=== PATIENT | female | born 1965 | race Hispanic/Latino ===

== ENCOUNTER 2019-02-07 18:11 | Emergency (ER) | payer BC ==
[~2019-02-07] VITALS: Ht 162.6 cm; Wt 82.3 kg
[2019-02-07] MEDS ORDERED: CEFTRIAXONE SOD 1 GM VIAL IM ONE (18:45)
[2019-02-07] MEDS ORDERED: CEFTRIAXONE SOD 1 GM VIAL ONE (18:48)
[2019-02-07 18:51] VITALS: BP 144/90
== END 2019-02-07 18:48 | disposition home or self-care (01) ==
LOC: FSED 18:11
DX: N30.01 Acute cystitis with hematuria (principal); R10.2 Pelvic and perineal pain
CPT/HCPCS: 81003; 96372; 99283; J0696

== ENCOUNTER 2024-04-15 09:30 | Inpatient (IN) | payer BC ==
[2024-04-15] VITALS (7 sets, daily range): BP systolic 150–151; BP diastolic 92–94; PULSE 84–95; RESP 16–19; TEMP 97.4–98.6; O2SAT 98–100
[~2024-04-15] VITALS: Ht 162.6 cm; Wt 71.7 kg
[2024-04-15] MEDS: DICYCLOMINE HCL 20 MG/2 ML VIAL IM ONE (09:52)
[2024-04-15] MEDS: LACTATED RINGER'S 1,000 ML INJ ONE (09:52)
[2024-04-15] MEDS: ONDANSETRON HCL INJ 2MG/ML 2ML 2 MG/ML VIAL IV STA (09:52)
[2024-04-15 10:10] LABS: BASOPHILS % 0.3 % (0.0-1.0); EOSINOPHILS % 0.2 % (0.0-6.0); HEMATOCRIT 44.9 % (34.2-44.1); HEMOGLOBIN 15.2 g/dL (12.0-16.0); LYMPHOCYTES # (AUTO) 1.4 (1.0-3.2); LYMPHOCYTES % 14.5 % (18.0-39.1); MEAN CORPUSCULAR HGB CONC 33.9 g/dL (31-35); MEAN CORPUSCULAR VOLUME 88.7 fL (81-99); MONOCYTES # (AUTO) 0.4 (0.2-0.8); MONOCYTES % 3.8 % (4.4-11.3); NEUTROPHILS # (AUTO) 7.8 (2.1-6.9); NEUTROPHILS % 79.2 % (38.7-80.0); PLATELET COUNT 265 x10e3/uL (140-360); RED BLOOD COUNT 5.06 x10e6/uL (3.6-5.1); RED CELL DISTRIBUTION WIDTH 12.8 % (11.7-14.4); WHITE BLOOD COUNT 9.89 x10e3/uL (4.8-10.8)
[2024-04-15 10:35] LABS: CLARITY,URINE CLOUDY (CLEAR); COLOR,URINE YELLOW (YELLOW)
[2024-04-15 10:36] LABS: BILIRUBIN,URINE NEGATIVE (NEGATIVE); GLUCOSE, URINE NEGATIVE (NEGATIVE); KETONES,URINE 2+ (NEGATIVE); LEUKOCYTE ESTERASE ,URINE NEGATIVE (NEGATIVE); NITRITE,URINE NEGATIVE (NEGATIVE); PH,URINE 6.5 (5 - 7); PROTEIN,URINE DIPSTICK TRACE (NEGATIVE); URINE UROBILINOGEN 1 mg/dL (0.2 - 1)
[2024-04-15 10:41] LABS: WBC,URINE (MAN) 0-5 /HPF (0-5)
[2024-04-15 10:42] LABS: BACTERIA,URINE FEW /HPF; CALCIUM OXALATE CRYSTALS,UR MANY (FEW); EPITHELIAL CELLS,URINE FEW /LPF; RBC,URINE 0-5 /HPF (0-5)
[2024-04-15 10:52] LABS: ALANINE AMINOTRANSFERASE 28 IU/L (0-55); ALBUMIN 4.7 g/dL (3.5-5.0); ALBUMIN/GLOBULIN RATIO 1.3 (0.8-2.0); ALKALINE PHOSPHATASE 93 IU/L (40-150); BILIRUBIN,TOTAL 0.8 mg/dL (0.2-1.2); BLOOD UREA NITROGEN 12 mg/dL (7-26); BUN/CREATININE RATIO 13 (6-25); CALCIUM 10.4 mg/dL (8.4-10.2); CARBON DIOXIDE 17 mmol/L (22-29); CHLORIDE 106 mmol/L (98-107); CREATININE, SERUM 0.93 mg/dL (0.57-1.11); EST GLOMERULAR FILTRATION RATE 71 ML/MIN (>=60); GLUCOSE 167 mg/dL (74-118); LIPASE 19 U/L (8-78); SODIUM 140 mmol/L (136-145); TOTAL PROTEIN 8.2 g/dL (6.5-8.1)
[2024-04-15] MEDS ORDERED: IOPAMIDOL 370 MG/ML 100 ML INFUS..BTL INJ ONE (10:54)
[2024-04-15 10:58] LABS: TROPONIN I < 0.001 ng/mL (0-0.300)
[2024-04-15] MEDS ORDERED: ALBUTEROL/IPRATROPIUM 3 ML NEB NEB PRN (12:30)
[2024-04-15] MEDS ORDERED: METOPROLOL TARTRATE INJ 1 MG/ML VIAL IV PRN (12:30)
[2024-04-15] MEDS: ONDANSETRON HCL INJ 2MG/ML 2ML 2 MG/ML VIAL IV PRN (12:44)
[2024-04-15] MEDS: SODIUM CHLORIDE 0.45% 1,000 ML IV SCH (12:44)
[2024-04-15] MEDS: Morphine 4mg INJECTION 4 MG/ML INJ IV PRN (12:45)
[2024-04-15] MEDS: FAMOTIDINE 20 MG/2 ML VIAL IV SCH (16:56)
[2024-04-15] MEDS: PROMETHAZINE 12.5MG/ NACL 0.9% 12.5 MG/50 ML BAG IV PRN (18:56)
[2024-04-16] VITALS (11 sets, daily range): BP systolic 133–149; BP diastolic 83–95; PULSE 77–98; RESP 16–18; TEMP 98–98.6; O2SAT 96–100
[2024-04-16 06:09] LABS: BASOPHILS % 0.2 % (0.0-1.0); HEMATOCRIT 41.2 % (34.2-44.1); HEMOGLOBIN 13.8 g/dL (12.0-16.0); LYMPHOCYTES # (AUTO) 1.1 (1.0-3.2); LYMPHOCYTES % 9.9 % (18.0-39.1); MEAN CORPUSCULAR HEMOGLOBIN 29.9 pg (28-32); MEAN CORPUSCULAR HGB CONC 33.5 g/dL (31-35); MEAN CORPUSCULAR VOLUME 89.4 fL (81-99); MONOCYTES # (AUTO) 0.8 (0.2-0.8); MONOCYTES % 6.7 % (4.4-11.3); NEUTROPHILS # (AUTO) 9.3 (2.1-6.9); NEUTROPHILS % 82.9 % (38.7-80.0); PLATELET COUNT 235 x10e3/uL (140-360); RED BLOOD COUNT 4.61 x10e6/uL (3.6-5.1); RED CELL DISTRIBUTION WIDTH 13.2 % (11.7-14.4); WHITE BLOOD COUNT 11.26 x10e3/uL (4.8-10.8)
[2024-04-16 06:34] LABS: ANION GAP 14.7 mmol/L (8-16); CREATININE, SERUM 0.85 mg/dL (0.57-1.11); POTASSIUM 3.7 mmol/L (3.5-5.1)
[2024-04-16] MEDS ORDERED: LISINOPRIL5 MG PO (07:54)
[2024-04-16] MEDS: ALPRAZOLAM 0.25 MG TAB PO PRN (21:32)
[2024-04-16] MEDS: TRAMADOL HCL 50 MG TAB PO PRN (21:33)
[2024-04-17] VITALS (9 sets, daily range): BP systolic 128–144; BP diastolic 72–97; PULSE 64–83; RESP 16–19; TEMP 97.5–98.6; O2SAT 97–100
[2024-04-17 06:43] LABS: ANION GAP 14.8 mmol/L (8-16); CREATININE, SERUM 0.76 mg/dL (0.57-1.11); PHOSPHORUS 2.8 MG/DL (2.3-4.7); POTASSIUM 3.8 mmol/L (3.5-5.1)
[2024-04-17] MEDS: POTASSIUM CHLORIDE 20MEQ/100ML 100 ML IV ONE (14:28)
[2024-04-18] VITALS (9 sets, daily range): BP systolic 110–169; BP diastolic 60–93; PULSE 65–72; RESP 18–20; TEMP 97.5–98.2; O2SAT 98–100
[2024-04-18 07:50] LABS: ANION GAP 13.9 mmol/L (8-16); CALCIUM 8.3 mg/dL (8.4-10.2); CREATININE, SERUM 0.83 mg/dL (0.57-1.11); PHOSPHORUS 2.4 MG/DL (2.3-4.7); POTASSIUM 3.9 mmol/L (3.5-5.1)
[2024-04-19 00:56] VITALS: BP 118/81; PULSE 61; RESP 18; TEMP 98.2; O2SAT 99
[2024-04-19 04:30] VITALS: BP 120/78; PULSE 62; RESP 17; TEMP 98; O2SAT 99
[2024-04-19 06:40] VITALS: PULSE 74; RESP 22; O2SAT 97
[2024-04-19 08:28] VITALS: BP 120/78; PULSE 74; RESP 22; TEMP 98; O2SAT 97
[2024-04-19 08:45] VITALS: BP 137/76; PULSE 57; RESP 18; TEMP 97.8; O2SAT 98
[2024-04-19 13:00] VITALS: BP 141/87; PULSE 65; RESP 18; TEMP 97.5; O2SAT 100
[2024-04-19 14:00] LABS: ANION GAP 13.5 mmol/L (8-16); CALCIUM 9.4 mg/dL (8.4-10.2); CREATININE, SERUM 0.78 mg/dL (0.57-1.11); POTASSIUM 3.5 mmol/L (3.5-5.1)
[2024-04-19 14:14] LABS: PHOSPHORUS 3.1 MG/DL (2.3-4.7)
[2024-04-19] MEDS ORDERED: CEPHALEXIN500 MG PO (14:45)
[2024-04-19] MEDS ORDERED: METRONIDAZOLE500 MG PO (14:45)
[2024-04-19] MEDS ORDERED: FAMOTIDINE20 MG PO (14:45)
[2024-04-19] MEDS ORDERED: ONDANSETRON ODT4 MG PO (14:45)
[2024-04-19] MEDS ORDERED: DOCUSATE SODIU100 MG PO (14:45)
[2024-04-19] MEDS ORDERED: SENOKOT8.6 MG PO (14:45)
== END 2024-04-19 16:53 | disposition home or self-care (01) | DRG 389 ==
LOC: ER 09:34 → ERHOLD 12:13 → MED/SURG3 16:22
PROVIDERS: ADMIT Internal Medicine; ATTEND Internal Medicine
DX: K56.50 Intestinal adhesions [bands], unspecified as to partial versus complete obstruction (principal); E87.20 Acidosis, unspecified; K56.7 Ileus, unspecified; R11.15 Cyclical vomiting syndrome unrelated to migraine; E66.9 Obesity, unspecified; Z68.31 Body mass index [BMI] 31.0-31.9, adult; Z90.49 Acquired absence of other specified parts of digestive tract
CPT/HCPCS: 36415; 71045; 74018; 74177; 80048; 80053; 81001; 83690; 83735; 84100; 84484; 85025; 93005; 94799; 99252; 99284; J2270; J2405; J2470; J2543; J2550; J3480; Q9967